=== PATIENT | female | born 1950 | race Caucasian/White ===

== ENCOUNTER 2018-02-17 09:06 | Day surgery (SDC) | END 2018-02-17 15:10 | disposition home or self-care (01) ==

== ENCOUNTER 2018-08-19 09:01 | Day surgery (SDC) | payer OTHER ==
[~2018-08-19] VITALS: Ht 152.4 cm; Wt 69.1 kg
[~2018-08-19 09:01] MED LIST: BENA10TA4 PO; CALC-143 PO; FAMO20TA18 PO; METF500T24 PO; MULTI PO; OMEG-158 PO; SIMV40TA2 PO
[2018-08-19] MEDS ORDERED: UNK HTN MED (09:46)
[2018-08-19] MEDS ORDERED: [UNRECOGNIZED DRUG - REMARK] (09:46)
[2018-08-19] MEDS ORDERED: UNK CHOLESTEROL MED (09:46)
[2018-08-19 09:53] VITALS: Ht 152.4 cm; Wt 69.1 kg
[2018-08-19 09:57] VITALS: BP 149/65; PULSE 69; RESP 17
[2018-08-19] MEDS ORDERED: PROPOFOL 40 ML ONE (09:58)
[2018-08-19] MEDS ORDERED: LIDOCAINE 100 MG SYRINGE ONE (09:58)
--- NOTE | 2018-08-19 10:04 | PREAC ---
Date/Time of Note Date/Time of Note DATE: 08/19/18 TIME: 10:03 Anesthesia Eval and Record Evaluation Time Pre-Procedure Interview DATE: 08/19/18 TIME: 10:03 Age 68 Sex female NPO: 8 hrs Preoperative diagnosis SCREENING Planned procedure COLONOSCOPY WITH BIOPSIES Past Medical History Past Medical History: Includes Cardio: HTN, Dyslipidemia Endo: Diabetes Surgery & Anesthesia Issues No known issue Meds Anticoagulation: No Beta Murtaza within 24 hr: No Reason Beta Murtaza not given: Pt. not on B-Murtaza Reported Medications [Unk Cholesterol Med] No Conflict Check 08/19/18 [Unk Dm Meds] No Conflict Check 08/19/18 [Unk Htn Med] No Conflict Check 08/19/18 Discontinued Reported Medications [place]-3/Dha/Epa/Fish Oil (FISH OIL 1,000 MG SOFTGEL) 1 Each Capsule, 1 EACH PO BID, CAP 02/17/18 Famotidine* (Famotidine*) 20 Mg Tablet, 20 MG PO BID, #60 TAB 02/17/18 Benazepril Hcl* (Benazepril Hcl*) 10 Mg Tablet, 10 MG PO DAILY, #30 TAB 02/17/18 Metformin Hcl* (Metformin Hcl*) 500 Mg Tablet, 500 MG PO WITH BREAKFAST DINNE, #60 TAB 02/17/18 Simvastatin* (Zocor*) 40 Mg Tablet, 40 MG PO QHS, #30 TAB 02/17/18 Multivitamins* (Theragran*) 1 Tab Tab, 1 TAB PO DAILY, TAB 02/17/18 Calcium Citrate/Vitamin D (Citracal-Vitamin D 200 MG-250) 1 Each Tablet, 1 EACH PO BID, TAB 02/17/18 Meds reviewed: Yes Allergies Coded Allergies: No Known Drug Allergies (Unverified Allergy, Unknown, 02/17/18) Allergies Reviewed: Yes Labs/Studies Labs Reviewed: Reviewed by anesthesiologist test: Negative Pre-procedure Exam Last vitals Vital Signs Date Temp Pulse Resp B/P (MAP) Pulse Ox O2 O2 Flow FiO2 Time Delivery Rate 08/19/18 98.0 69 17 149/65 94 Room Air 09:57 (93) Airway: Adequate mouth opening, Adequate thyromental dist Mallampati: Mallampati II Teeth: Normal Lung: Normal Heart: Normal ASA Physical Status ASA physical status: 2 Emergency: None Planned Anesthetic General/MAC: MAC Planned Pain Management Parenteral pain med Pre-operative Attestations Prior to commencing anesthesia and surgery, the patient was re-evaluated, there was verification of: *The patient's identity *The results of appropriate recent lab work and preoperative vital signs *The above evaluation not changing prior to induction *Anesthetic plan, risk benefits, alternative and complications discussed with patient/family; questions answered; patient/family understands, accepts and wishes to proceed. Javier Bonilla M.D. August 19, 2018 10:04
[2018-08-19] MEDS ORDERED: MEPERIDINE 25 MG INJ IV PRN (10:30)
[2018-08-19] MEDS ORDERED: ONDANSETRON 4 MG INJ IV PRN (10:30)
[2018-08-19] MEDS ORDERED: HYDROmorphONE 1 MG/5 ML IV SYRINGE IV PRN ×3 (10:30)
[2018-08-19] MEDS ORDERED: TRIMETHOBENZAMIDE 100 MG/ML VIAL IM PRN (10:30)
[2018-08-19] MEDS ORDERED: EPHEDrine SULFATE 50 MG/5 ML SYG IV PRN (10:30)
[2018-08-19] MEDS ORDERED: hydrALAzine 20 MG INJ IV PRN (10:30)
[2018-08-19] MEDS ORDERED: IPRATROPIUM (NEB) 0.5 MG/2.5 ML AMP HHN PRN (10:30)
[2018-08-19] MEDS ORDERED: DIPHENHYDRAMINE 50 MG INJ IV PRN (10:30)
[2018-08-19] MEDS ORDERED: FENTAnyl 50 MCG/ML VIAL IV PRN ×3 (10:30)
[2018-08-19] MEDS ORDERED: LABETALOL HCL 20MG INJ IV PRN (10:30)
[2018-08-19] MEDS ORDERED: MIDAZOLAM 1 MG/ML 2 ML INJ IV PRN (10:30)
[2018-08-19] MEDS ORDERED: ALBUTEROL 0.083% (NEB) 2.5 MG/3 ML AMP HHN PRN (10:30)
[2018-08-19] MEDS ORDERED: OXYCODONE/ACETAMINOPHEN (5/325) TAB PO PRN ×2 (10:30)
[2018-08-19 10:43] VITALS: BP 141/63; PULSE 59; RESP 16
== END 2018-08-19 11:05 | disposition home or self-care (01) ==
LOC: GIL 09:01
PROVIDERS: ATTEND Internal Medicine Gastroenterology
DX: Z12.11 Encounter for screening for malignant neoplasm of colon (principal); K64.4 Residual hemorrhoidal skin tags; K57.30 Diverticulosis of large intestine without perforation or abscess without bleeding; I10 Essential (primary) hypertension; E11.9 Type 2 diabetes mellitus without complications; Z79.84 Long term (current) use of oral hypoglycemic drugs
CPT/HCPCS: 45378; 82962; J2001